=== PATIENT | male | born 1970 | race Caucasian/White ===

== ENCOUNTER → 2017-04-10 | Outpatient (CLI) | payer OTHER ==
[~2017-04-10] MED LIST: GEMF600T3 PO; NSP/500 PO
[2017-04-10 12:43] LABS: CALCIUM 9.4 mg/dl (8.5-10.1)
[2017-04-10 12:44] LABS: ALT/SGPT 28 U/L (12-78); BLOOD UREA NITROGEN 25 mg/dl (7-18); BUN/CREATININE RATIO 24.9 (10-20); CARBON DIOXIDE 23 mmol/L (21-32); CHLORIDE 106 mmol/L (98-107); CHOLESTEROL 173 mg/dl (0-200); GLUCOSE 99 mg/dl (70-99); SODIUM 139 mmol/L (136-145); TRIGLYCERIDES 255 mg/dl (0-150); VERY LOW DENSITY LIPOPROT CALC 51 mg/dl
[2017-04-10 12:47] LABS: ALKALINE PHOSPHATASE 55 U/L (45-117); AST/SGOT 17 U/L (15-37); CHOLESTEROL/HDL RATIO 4.4; ESTIMATED AVERAGE GLUCOSE 128 mg/dl; HA1C FLAG Normal (Normal); HDL CHOLESTEROL 39 mg/dl; LDL CHOLESTEROL CALCULATED 83 mg/dl
== END | disposition home or self-care (01) ==
LOC: C.LAB1850 10:42
PROVIDERS: ATTEND Family Medicine
DX: R73.03 Prediabetes (principal)